=== PATIENT | female | born 1990 ===

== ENCOUNTER 2020-11-09 09:02 | Outpatient (CLI) | payer MEDICAID ==
[2020-11-09 15:19] VITALS: BP 131/77
--- NOTE | 2020-11-11 09:59 | Consultation ---
DATE OF CONSULTATION: 11/09/2020 CHIEF COMPLAINT: Hemorrhoids, rectal pain. PAST MEDICAL HISTORY: History of hiatal hernia. PAST SURGICAL HISTORY: None. MEDICATIONS: . ALLERGIES: No allergies. FAMILY HISTORY: Grandfather had colon cancer. Grandma had lung cancer. SOCIAL HISTORY: The patient drinks about 5 times per week. Smokes occasionally. Uses marijuana. REVIEW OF SYSTEMS: Positive for hemorrhoids and mild constipation. PHYSICAL EXAMINATION: VITAL SIGNS: Temperature 97.4, blood pressure 131/77, pulse 72, respirations 20. HEENT: Normocephalic and atraumatic. Sclerae anicteric. NECK: Supple. No evidence of obvious lymphadenopathy. CARDIOVASCULAR: Regular rate and rhythm. Plus S1-S2. LUNGS: Clear to auscultation bilaterally. ABDOMEN: Positive bowel sounds. Soft, nontender. No rebound. No guarding. No peritoneal sign. EXTREMITIES: No cyanosis, no clubbing, no edema. ASSESSMENT AND PLAN: This is a 29-year-old female complaints of most probably hemorrhoidal pain. Plan to use Anusol HC suppository, MiraLAX for constipation. Return to clinic for followup if still symptomatic. At that time, we will consider flexible sigmoidoscopy. Jamie Hinton M.D. DR: Yayo JOB#: [id number] CC:
== END 2020-11-09 15:15 | disposition home or self-care (01) ==
LOC: PAN 09:02
DX: K64.9 Unspecified hemorrhoids (principal); K62.89 Other specified diseases of anus and rectum; Z80.0 Family history of malignant neoplasm of digestive organs; Z80.1 Family history of malignant neoplasm of trachea, bronchus and lung; K59.00 Constipation, unspecified
CPT/HCPCS: 99203